=== PATIENT | female | born 1950 | race Caucasian/White ===

== ENCOUNTER 2025-09-24 08:32 | Emergency (ER) | payer BC, MEDICAID, MEDICARE ==
[~2025-09-24] VITALS: Ht 157.5 cm; Wt 69.2 kg
[2025-09-24 08:34] VITALS: BP 130/71; TEMP 97.7; O2SAT 95
[2025-09-24 10:57] LABS: BASO # 0.1 10^3/uL (0.0-0.2); BASO % 0.7 % (0.0-1.0); EOS # 0.2 10^3/uL (0.0-0.5); EOS % 2.1 % (0.0-3.0); LYMPH # 1.8 10^3/uL (1.5-5.0); LYMPH % 21.2 % (24.0-44.0); MONO # 1.1 10^3/uL (0.0-0.8); MONO % 12.5 % (2.0-8.0); NEUTROPHILS # 5.5 10^3/uL (1.5-8.5); NEUTROPHILS % 63.4 % (36.0-66.0); PLATELET COUNT, AUTOMATED 276 10^3/uL (150-450)
[2025-09-24 11:19] LABS: ALT/SGPT 26 U/L (7.0-40); AST/SGOT 20 U/L (<34); CALCIUM LEVEL 9.4 MG/DL (8.3-10.6); CARBON DIOXIDE LEVEL 27 MMOL/L (20-31); CHLORIDE LEVEL 108 MMOL/L (98-107); CREATININE FOR GFR 0.55 MG/DL (0.55-1.30); GLOMERULAR FILTRATION RATE > 90.0 (>39); INR 0.92; POTASSIUM SERUM 4.5 MMOL/L (3.5-5.1); SODIUM LEVEL 143 MMOL/L (136-145)
[2025-09-24] MEDS: SILVER NITRATE APPLICATOR (1 = QTY 10) TOP ONE (11:50)
== END 2025-09-24 12:46 | disposition home or self-care (01) ==
LOC: M ED 08:32
DX: R04.0 Epistaxis (principal); F10.10 Alcohol abuse, uncomplicated; Z91.018 Allergy to other foods